=== PATIENT | female | born 1990 | race American Indian/Alaskan Native ===

== ENCOUNTER 2017-11-20 09:01 | Emergency (ER) | payer SELFPAY ==
[2017-11-20 10:05] VITALS: BP 120/74
[2017-11-20] MEDS ORDERED: MOTRIN PO ONE (13:25)
--- NOTE | 2017-11-20 13:25 | Emergency Department Report ---
HPI - General Chief Complaint: Sore Throat Time Seen by Provider: 11/20/17 12:34 - HPI HPI: Patient reports sore throat with pinkeye. She said she's been having drainage from her left eye times one day with redness. Denies any pain to eye. She is also complaining of sore throat and suspects she has step. Patient denies any difficulty swallowing or managing secretion. Denies any drooling. Symptoms started yesterday. Denies any known exposure to strep. Last sexual partner was 10/26/2017. Denies any nausea or vomiting. Denies any fever or chills denies any coughing or shortness of breath. Denies any nasal congestion. Denies any abdominal or back pain. Denies any urinary burning frequency or urgency. ED Past Medical Hx - Past Medical History Previous Medical History?: No - Surgical History Past Surgical History?: No - Family History Family history: no significant - Social History Smoking Status: Never Smoker Substance Use Type: None - Medications Home Medications: Home Medications Medication Instructions Recorded Confirmed Last Taken Type Gentamicin 0.3% Ophth Soln 2 drops OS Q8H #1 bottle 11/20/17 Unknown Rx Ibuprofen [Motrin] 600 mg PO Q8H PRN #12 tablet 11/20/17 Unknown Rx Penicillin V Potassium 500 mg PO Q8H 10 Days #30 tablet 11/20/17 Unknown Rx ED Review of Systems ROS: Stated complaint: PINKEYE/STREP THROAT Other details as noted in HPI Comment: All other systems reviewed and negative Constitutional: no symptoms reported Eyes: eye discharge. denies: eye pain, vision change ENT: throat pain. denies: ear pain, dental pain, congestion Respiratory: denies: cough, orthopnea, shortness of breath, SOB with exertion, SOB at rest, stridor, wheezing Cardiovascular: denies: chest pain, palpitations, dyspnea on exertion, edema, syncope, paroxysmal nocturnal dyspnea Gastrointestinal: denies: abdominal pain, nausea, vomiting, diarrhea, constipation Genitourinary: denies: urgency, dysuria, frequency, hematuria, discharge, abnormal menses, dyspareunia Musculoskeletal: denies: back pain, joint swelling, arthralgia, myalgia Skin: denies: rash Neurological: denies: headache, weakness, numbness, paresthesias, confusion, abnormal gait, vertigo Physical Exam - Physical Exam Vital Signs: Vital Signs 11/20/17 10:00 Temperature 97.7 F Pulse Rate 74 Respiratory 16 Rate Blood Pressure 120/74 O2 Sat by Pulse 98 Oximetry General: This is a 27-year-old morbidly obese female well-nourished well-developed in no acute distress. Physical Exam: Head: Normocephalic atraumatic Ears:BIateral TM pearly mcneil . Lester EAC with normal exam. No mastoid bone tenderness. Mouth: Moist, positive pharyngeal exudate with erythema. Positive tonsillar enlargement. UVULA midline and oral airways patent. No peritonsillar abscess. Neck: Nontender to palpate, supple, normal range of motion. Positive adenopathy. No c-spine tenderness. Nose: Bilateral nasal mucosa normal . Maxillary and frontal sinuses non- tender to palpate. Eyes: Left Sclerae and conjunctiva with injection. Visual acuity 20/20 both eyes, right eye and left eye. Bilateral pupils equal and reactive to light. Bilateral lids are normal. Normal accommodation.BEOMI Abdomen: Soft, nontender to palpation in all quadrants, no guarding or rebound tenderness. Normal bowel sounds in all quadrants and no CVA tenderness Lungs: Clear to auscultate bilaterally, no rhonchi wheezes or rales. Normal work of breathing and no chest wall tenderness. Dry cough CV: S1, S2. Regular rate and rhythm, negative murmur. Capillary refill is less than 3 seconds Skin: Clean dry and intact, no rashes or lesions Psych: Normal mood and behavior ED Course Vital Signs 11/20/17 10:00 Temperature 97.7 F Pulse Rate 74 Respiratory 16 Rate Blood Pressure 120/74 O2 Sat by Pulse 98 Oximetry - Reevaluation(s) Reevaluation #1: 11/20/17 14:27 Patient given Motrin 800 mg by mouth in emergency room patient with her pain. Patient given multiple juices and emergency room and tolerated without any difficulty swallowing or any drooling. ED Medical Decision Making - Lab Data Strep, rapid negative and culture pending - Medical Decision Making ED course: Patient here reports that she has sore throats and also drainage from left eye with redness. Denies any eye pain or trauma. Visual acuity is 20 /20 all around. Patient with positive pharyngeal erythema and exudates and enlarged anterior cervical lymph nodes. No concerns for corneal abrasion this patient is not having any foreign body sensation or eye pain. No concerns for peritonsillar abscesses patient tolerated fluid well and without drooling but she does have positive exudate to pharyngeal with erythema and swelling and enlarged lymph nodes. Although rapid strep is negative based on [facility] criteria will treat for exudative pharyngitis. I Discussed diagnosis and treatment plan the patient and she voiced understanding. Patient given Motrin 800 mg by mouth and emergency room relief of pain. Patient discharged home in stable condition with prescription for Motrin, gentamicin ophthalmic and penicillin V and follow-up with her primary care physician in 3 days Critical care attestation.: If time is entered above; I have spent that time in minutes in the direct care of this critically ill patient, excluding procedure time. ED Disposition Clinical Impression: Exudative pharyngitis, Morbid obesity Conjunctivitis, left eye Qualifiers: Conjunctivitis type: unspecified Qualified Code(s): H10.9 - Unspecified conjunctivitis Disposition: - TO HOME OR SELFCARE Is pt being admited?: No Does the pt Need Aspirin: No Condition: Stable Instructions: Pharyngitis (ED), Conjunctivitis (ED), Obesity (ED), Weight Management (ED) Additional Instructions: Please see discharge instructions on obesity and weight management Take penicillin as prescribed. [facility] Use antibiotic eyedrops as instructed Please follow up with a primary care physician and 3 days and if he do not have a primary care physician follow-up with [facility] Return to emergency room as having difficulty with managing secretion and/ or drooling. Prescriptions: Gentamicin 0.3% Ophth Soln 2 drops OS Q8H #1 bottle Ibuprofen [Motrin] 600 mg PO Q8H PRN #12 tablet PRN Reason: Pain Penicillin V Potassium 500 mg PO Q8H 10 Days #30 tablet Referrals: [facility] [Outside] - 11/23/17 Forms: Work/School Release Form(ED)
== END 2017-11-20 15:01 | disposition home or self-care (01) ==
LOC: ED 09:01
DX: J02.9 Acute pharyngitis, unspecified (principal); H10.9 Unspecified conjunctivitis
CPT/HCPCS: 87116; 87430; 99282